=== PATIENT | female | born 1965 | race Caucasian/White ===

== ENCOUNTER 2017-11-09 07:44 | Outpatient (CLI) | payer OTHER ==
--- NOTE | 2017-11-09 10:41 | MRI ---
MRI LUMBAR SPINE WITHOUT CONTRAST: Multiplanar multisequential imaging of lumbar spine obtained. INDICATION: Low back pain. Radiation to left lower extremity. FINDINGS: The lumbar vertebrae maintain normal height and alignment. Disk spaces are maintained. Degenerative disk signal changes are noted at L5-S1. Vertebral body signal is normal. At L1-2, minimal disk bulge. No central canal or foraminal stenosis. At L2-3, no disk abnormality. Mild facet arthrosis. No central canal or foraminal stenosis. At L3-4, no significant disk abnormality. Mild facet arthrosis. No central canal or foraminal steno sis. At L4-5, no significant disk bulge. Mild facet hypertrophy. No significant central canal or foramin al stenosis. At L5-S1, there is an annular fissure with associated broad-based disk bulge flattening the anterior thecal sac. Facet arthrosis and mild facet and ligamentous hypertrophy. These changes result in claudia y mild central canal stenosis. The foramina appear patent. IMPRESSION: There is an annular fissure with diffuse disk bulge at L5-S1. There is mild facet and ligamentous hy pertrophy at this level and these changes result in a very mild central canal stenosis. POS: [facility]
--- NOTE | 2017-11-09 16:34 | MRI ---
CERVICAL SPINE MRI WITH AND WITHOUT CONTRAST: 11/09/17 HISTORY: Bilateral upper extremity and finger numbness, x1 year. COMPARISON: 11/03/09. TECHNIQUE: Cervical spine MRI is performed without intravenous gadolinium administration. Multisequential, multi planar imaging is performed. FINDINGS: There is a type I and Type II Modic change at the C5-C6 disc space level. There is 2.6 mm of anteroli sthesis of C3 upon C4 and 2.7 mm of anterolisthesis of C4 upon C5. There is 1.7 mm of retrolisthesis of C5 upon C6. The visualized brain parenchyma, cervicomedullary. junction, cervical cord and the upp er thoracic cord have a normal size and signal intensity. C2-C3: No significant disc osteophyte complex. No significant central canal stenosis. Neural foramina are patent. C3-C4: Broad based disc osteophyte complex abuts the thecal sac. Ventral CSF space is effaced. Mild c entral canal stenosis. No T2 hyperintensity in the cord. Right and left neural foramina are patent. M inimal left facet hypertrophy. C4-C5: Broad based disc osteophyte complex abuts the thecal sac. Ventral CSF space signal intensity i s maintained. There is mild to moderate narrowing of the right neural foramen due to degenerative patsy nge of the uncovertebral joint and facet hypertrophy. Left neural foramen is patent. C5-C6: There is a broad based osteophyte complex that abuts the thecal sac. Ventral CSF space is effa albino. Mild flattening of the cervical cord, without T2 hyperintensity of the cord. Mild central canal stenosis. Degenerative changes in bilateral uncovertebral joints results in mild to moderate bilatera l foraminal narrowing. C6-C7: There is a broad based disc osteophyte complex with a left paracentral component. Ventral CSF signal intensity is maintained. Mild central canal stenosis. Degenerative change in bilateral uncover tebral joints results in moderate bilateral foraminal narrowing. C7-T1: No significant central canal stenosis or foraminal narrowing. IMPRESSION: 1. Degenerative changes of the cervical spine as detailed above. There is spondylolisthesis due to degenerative change. 2. Varying degrees of central canal stenosis and foraminal narrowing as above. No signal abnorma lity in the cervical cord. POS: [facility]
== END 2017-11-09 07:45 | disposition home or self-care (01) ==
LOC: SCSMRI 07:44
PROVIDERS: ATTEND Family Medicine
DX: M47.22 Other spondylosis with radiculopathy, cervical region (principal); M43.12 Spondylolisthesis, cervical region; M48.02 Spinal stenosis, cervical region; M99.81 Other biomechanical lesions of cervical region; M51.17 Intervertebral disc disorders with radiculopathy, lumbosacral region; M47.26 Other spondylosis with radiculopathy, lumbar region; M48.061 Spinal stenosis, lumbar region without neurogenic claudication; Q05.7 Lumbar spina bifida without hydrocephalus
CPT/HCPCS: 72141; 72148

== ENCOUNTER 2020-11-11 14:42 | Outpatient (CLI) | payer BC | END 2020-11-11 14:43 | disposition home or self-care (01) | LOC: BICCT 14:42 | PROVIDERS: ATTEND Family Medicine | DX: M47.22 Other spondylosis with radiculopathy, cervical region (principal); M47.813 Spondylosis without myelopathy or radiculopathy, cervicothoracic region | CPT/HCPCS: 72125 ==

== ENCOUNTER 2022-05-02 07:38 | Outpatient (CLI) | payer BC | END 2022-05-02 07:39 | disposition home or self-care (01) | LOC: TBSIIMAG 07:38 | PROVIDERS: ATTEND Family Medicine | DX: M47.22 Other spondylosis with radiculopathy, cervical region (principal); M47.12 Other spondylosis with myelopathy, cervical region; M50.01 Cervical disc disorder with myelopathy, high cervical region; M50.11 Cervical disc disorder with radiculopathy, high cervical region; M48.02 Spinal stenosis, cervical region; M50.121 Cervical disc disorder at C4-C5 level with radiculopathy; M50.022 Cervical disc disorder at C5-C6 level with myelopathy; M50.122 Cervical disc disorder at C5-C6 level with radiculopathy; M50.123 Cervical disc disorder at C6-C7 level with radiculopathy | CPT/HCPCS: 72141 ==

== ENCOUNTER 2022-12-22 14:57 | Outpatient (CLI) | payer BC ==
[2022-12-22 16:10] LABS: Hematocrit 38.3 % (34.9-44.5); Hemoglobin 12.6 g/dL (12.0-15.5); Mean Corpuscular HGB CONC 32.9 g/dL (32.0-36.0); Mean Corpuscular Hemoglobin 30.9 pg (27.0-33.0); Mean Corpuscular Volume 93.9 fl (81.6-98.3); Mean Platelet Volume 10.7 fl (7.4-10.4); Platelet Count 288 10x3/uL (150-450); RBC Distribution Width 12.6 % (11.5-14.5); Red Blood Cell (RBC) Count 4.08 10x6/uL (3.90-5.03); White Blood Cell (WBC) Count 4.8 10x3/uL (3.5-10.5)
[2022-12-22 16:24] LABS: Anion Gap 15 mmol/L (10-20); BUN (Urea Nitrogen) 8 mg/dL (9.8-20.1); Calc. Creatinine Clearance 0 mL/min (70-130); Calcium 9.4 mg/dL (7.8-10.44); Carbon Dioxide 25 mmol/L (22-29); Chloride 106 mmol/L (98-107); Estimated GFR 80; Glucose 100 mg/dL (70-105); Sodium 142 mmol/L (136-145)
== END 2022-12-22 14:58 | disposition home or self-care (01) ==
LOC: LABBT 14:57
PROVIDERS: ATTEND Neurological Surgery
DX: Z01.818 Encounter for other preprocedural examination (principal); M54.12 Radiculopathy, cervical region
CPT/HCPCS: 80048; 85027; 93005; 93010

== ENCOUNTER 2022-12-27 07:11 | Day surgery (SDC) | payer BC ==
[2022-12-22 15:33] VITALS: BMI 33.9
[2022-12-27] MEDS ORDERED: CEFAZOLIN 2 GM VIAL ONE ×2 (09:25→14:56)
[2022-12-27] MEDS ORDERED: Lidocaine 1% MPF 2 ML VIAL ONE (09:25)
[2022-12-27] MEDS ORDERED: Sodium Chloride 0.9% 100 ML ONE ×2 (09:25→14:56)
[2022-12-27] MEDS ORDERED: fentaNYL 50 mcg/mL 1 mL Vial ONE ×6 (09:31→13:19)
[2022-12-27] MEDS ORDERED: Dexamethasone 20 MG/5 ML VIAL ONE (10:27)
[2022-12-27] MEDS ORDERED: Lidocaine 1% PF 5 ML VIAL ONE (10:27)
[2022-12-27] MEDS ORDERED: diphenhydrAMINE 50 MG/ML VIAL ONE (10:27)
[2022-12-27] MEDS ORDERED: PROPOFOL 200 MG/20 ML VIAL ONE (10:27)
[2022-12-27] MEDS ORDERED: PHENYLEPHRINE-NS 100 MCG/ML 10 ML SYRINGE ONE (10:27)
[2022-12-27] MEDS ORDERED: Rocuronium Bromide 10 MG/ML (10ML VIAL) ONE (10:27)
[2022-12-27] MEDS ORDERED: SUGAMMADEX SODIUM 200 MG/2 ML VIAL ONE (11:55)
[2022-12-27] MEDS ORDERED: Cyclobenzaprine 10 MG TAB ONE (12:57)
[2022-12-27] MEDS ORDERED: Midazolam HCl 2 mg/2 ml Vial ONE (13:42)
[2022-12-27] MEDS ORDERED: HYDROcodone/Acetaminophen 5/325 mg Tablet ONE (14:49)
== END 2022-12-27 16:02 | disposition home or self-care (01) ==
LOC: SDC 07:11
PROVIDERS: ATTEND Neurological Surgery
PROC: 0RG20A0 Fusion of 2 or more Cervical Vertebral Joints with Interbody Fusion Device, Anterior Approach, Anterior Column, Open Approach (ICD-10-PCS; principal; 2022-12-27)
DX: M54.12 Radiculopathy, cervical region (principal); G89.29 Other chronic pain; F32.A Depression, unspecified; R51.9 Headache, unspecified; J45.909 Unspecified asthma, uncomplicated; Z90.710 Acquired absence of both cervix and uterus; Z90.89 Acquired absence of other organs; Z88.1 Allergy status to other antibiotic agents; Z88.5 Allergy status to narcotic agent; Z79.899 Other long term (current) drug therapy
CPT/HCPCS: C1713; C1889; J1100; J1200; J2250; J2704; J3010; J3490

== ENCOUNTER 2023-03-06 14:40 | Outpatient (CLI) | payer BC ==
[2023-03-06 16:03] LABS: Hematocrit 41.7 % (34.9-44.5); Hemoglobin 13.7 g/dL (12.0-15.5); Mean Corpuscular HGB CONC 32.9 g/dL (32.0-36.0); Mean Corpuscular Hemoglobin 30.9 pg (27.0-33.0); Mean Corpuscular Volume 93.9 fl (81.6-98.3); Mean Platelet Volume 10.6 fl (7.4-10.4); Platelet Count 261 10x3/uL (150-450); RBC Distribution Width 12.6 % (11.5-14.5); Red Blood Cell (RBC) Count 4.44 10x6/uL (3.90-5.03); White Blood Cell (WBC) Count 4.8 10x3/uL (3.5-10.5)
[2023-03-06 16:08] LABS: Anion Gap 13 mmol/L (10-20); BUN (Urea Nitrogen) 6 mg/dL (9.8-20.1); Calc. Creatinine Clearance 0 mL/min (70-130); Calcium 9.2 mg/dL (7.8-10.44); Carbon Dioxide 25 mmol/L (22-29); Chloride 109 mmol/L (98-107); Estimated GFR 87; Glucose 98 mg/dL (70-105); Sodium 143 mmol/L (136-145)
== END 2023-03-06 14:41 | disposition home or self-care (01) ==
LOC: LABBT 14:40
PROVIDERS: ATTEND Otolaryngology Plastic Surgery within the Head & Neck
DX: Z01.818 Encounter for other preprocedural examination (principal); J38.00 Paralysis of vocal cords and larynx, unspecified
CPT/HCPCS: 80048; 85027; 93005; 93010

== ENCOUNTER 2023-03-07 08:18 | Day surgery (SDC) | payer BC ==
[2023-03-06 15:28] VITALS: BMI 33.9
[2023-03-07] MEDS ORDERED: EPINEPHrine 1 MG/ML VIAL ONE (10:35)
[2023-03-07] MEDS ORDERED: fentaNYL 50 mcg/mL 1 mL Vial ONE ×6 (10:54→12:25)
[2023-03-07] MEDS ORDERED: Dexamethasone 20 MG/5 ML VIAL ONE (11:14)
[2023-03-07] MEDS ORDERED: PROPOFOL 200 MG/20 ML VIAL ONE (11:14)
[2023-03-07] MEDS ORDERED: Rocuronium Bromide 10 MG/ML (10ML VIAL) ONE (11:14)
[2023-03-07] MEDS ORDERED: Ondansetron PF 4 MG/2 ML Vial ONE (11:14)
[2023-03-07] MEDS ORDERED: Hydrocodone-Acetamin 15 ML UDCUP ONE (13:06)
== END 2023-03-07 14:05 | disposition home or self-care (01) ==
LOC: SDC 08:18
PROVIDERS: ATTEND Otolaryngology Plastic Surgery within the Head & Neck
PROC: 3E0F83Z Introduction of Anti-inflammatory into Respiratory Tract, Via Natural or Artificial Opening Endoscopic (ICD-10-PCS; principal; 2023-03-07)
DX: J38.00 Paralysis of vocal cords and larynx, unspecified (principal); R13.10 Dysphagia, unspecified; G43.909 Migraine, unspecified, not intractable, without status migrainosus; J18.9 Pneumonia, unspecified organism; J45.909 Unspecified asthma, uncomplicated; Z90.49 Acquired absence of other specified parts of digestive tract; Z90.710 Acquired absence of both cervix and uterus; Z98.890 Other specified postprocedural states; Z79.899 Other long term (current) drug therapy; Z91.048 Other nonmedicinal substance allergy status; Z88.1 Allergy status to other antibiotic agents; Z88.2 Allergy status to sulfonamides
CPT/HCPCS: C1776; J0171; J3010